=== PATIENT | female | born 1950 | race Hispanic/Latino ===

== ENCOUNTER → 2021-07-08 | Outpatient (CLI) | payer OTHER | END | disposition home or self-care (01) | LOC: RAH 08:41 | PROVIDERS: ATTEND Internal Medicine | DX: K80.20 Calculus of gallbladder without cholecystitis without obstruction (principal) | CPT/HCPCS: 76700 ==

== ENCOUNTER 2021-08-09 07:59 | Day surgery (SDC) | payer OTHER ==
[~2021-08-09] VITALS: Ht 157.5 cm; Wt 60.3 kg
[~2021-08-09 07:59] MED LIST: 0.9%NACL 1000ML 1,000 ML IV ONE
[2021-08-09 08:15] VITALS: BP 198/85
[2021-08-09] MEDS ORDERED: ALEN35TA53 PO (08:28)
[2021-08-09] MEDS ORDERED: VALS160T29 PO (08:32)
[2021-08-09] MEDS ORDERED: ASPI-1197 PO (08:32)
[2021-08-09] MEDS ORDERED: ROSU20TA31 PO (08:32)
[2021-08-09] MEDS ORDERED: PANT40GR PO (08:32)
[2021-08-09] MEDS ORDERED: CHOL100046 PO (08:34)
[2021-08-09] MEDS ORDERED: PROPOFOL 10 MG/ML 20ML VIAL IV ONE (09:32)
[2021-08-09 09:44] VITALS: BP 116/53
[2021-08-09 09:49] VITALS: BP 129/56
[2021-08-09 09:54] VITALS: BP 139/58
[2021-08-09 09:59] VITALS: BP 138/59
[2021-08-09 10:04] VITALS: BP 138/65
== END 2021-08-09 10:11 | disposition home or self-care (01) ==
LOC: DAH 07:59
PROVIDERS: ATTEND Internal Medicine Gastroenterology
DX: R93.2 Abnormal findings on diagnostic imaging of liver and biliary tract (principal); K31.89 Other diseases of stomach and duodenum; K80.20 Calculus of gallbladder without cholecystitis without obstruction; K80.50 Calculus of bile duct without cholangitis or cholecystitis without obstruction; K83.8 Other specified diseases of biliary tract; R93.5 Abnormal findings on diagnostic imaging of other abdominal regions, including retroperitoneum; I10 Essential (primary) hypertension; E78.5 Hyperlipidemia, unspecified; Z79.899 Other long term (current) drug therapy; Z20.822 Contact with and (suspected) exposure to COVID-19
CPT/HCPCS: 43237; 87635; A4215 ×6; A4221 ×2; A4222 ×2; A4223 ×2; A4606 ×2; A4620 ×2; A4657 ×2; A4663 ×2; C9803; J2704; J7030; 43239; 43255; 45380; 45385

== ENCOUNTER 2021-08-10 10:01 | Day surgery (SDC) | payer OTHER ==
[2021-08-10] VITALS (19 sets, daily range): BP systolic 124–197; BP diastolic 67–88
[~2021-08-10] VITALS: Ht 157.5 cm; Wt 60.3 kg
[~2021-08-10 10:01] MED LIST changes: -0.9%NACL 1000ML 1,000 ML IV ONE; +ALEN35TA53 PO; +ASPI-1197 PO; +CHOL100046 PO; +PANT40GR PO; +ROSU20TA31 PO; +VALS160T29 PO
[2021-08-10] MEDS ORDERED: 0.9%NACL 1000ML 1,000 ML IV ONE (10:19)
[2021-08-10] MEDS ORDERED: INDOMETHACIN 50 MG SUPP.RECT RC SCH (11:00)
[2021-08-10] MEDS ORDERED: IOHEXOL-350 50ML VIAL IV ONE (11:57)
[2021-08-10] MEDS ORDERED: ONDANSETRON 4MG INJ ONE (12:08)
[2021-08-10] MEDS ORDERED: SUCCINYLCHOLINE 200MG/10ML SYR ONE (12:08)
[2021-08-10] MEDS ORDERED: MIDAZOLAM HCL 1 MG/ML 2ML VIAL ONE (12:08)
[2021-08-10] MEDS ORDERED: FENTANYL CITRATE PF 50 MCG/1 ML 2ML VIAL ONE (12:08)
[2021-08-10] MEDS ORDERED: PROPOFOL 10 MG/ML 20ML VIAL IV ONE (12:08)
[2021-08-10] MEDS ORDERED: LIDOCAINE HCL 1% 20 ML VIAL ONE (12:09)
[2021-08-10] MEDS ORDERED: GLUCAGON 1MG KIT 1 MG ML ONE (12:33)
[2021-08-10] MEDS ORDERED: ZOSYN 3.375GM+NS 50ML 50 ML ONE (12:55)
== END 2021-08-10 15:30 | disposition home or self-care (01) ==
LOC: DAH 10:01 → ENDO 10:01
PROVIDERS: ATTEND Internal Medicine Gastroenterology
DX: K80.50 Calculus of bile duct without cholangitis or cholecystitis without obstruction (principal); Z20.822 Contact with and (suspected) exposure to COVID-19; E11.9 Type 2 diabetes mellitus without complications; K21.9 Gastro-esophageal reflux disease without esophagitis; I10 Essential (primary) hypertension; E78.5 Hyperlipidemia, unspecified; K83.8 Other specified diseases of biliary tract; Z79.82 Long term (current) use of aspirin; Z79.899 Other long term (current) drug therapy; Z87.891 Personal history of nicotine dependence; Z98.890 Other specified postprocedural states; Z98.49 Cataract extraction status, unspecified eye; Z79.01 Long term (current) use of anticoagulants
CPT/HCPCS: 43264; 43274; 74328; A4215 ×2; A4221; A4222; A4223; A4606; A4657 ×2; A4663; C1769 ×2; J0330; J1610; J2250; J2405; J2543; J2704; J3010; J7030; Q9967; 74330

== ENCOUNTER 2021-09-06 08:51 | Day surgery (SDC) | payer OTHER ==
[2021-09-06] VITALS (16 sets, daily range): BP systolic 124–191; BP diastolic 56–77
[~2021-09-06] VITALS: Ht 157.5 cm; Wt 60.3 kg
[~2021-09-06 08:51] MED LIST changes: +0.9%NACL 1000ML 1,000 ML IV ONE
[2021-09-06] MEDS ORDERED: INDOMETHACIN 50 MG SUPP.RECT RC SCH (10:30)
[2021-09-06] MEDS ORDERED: IOHEXOL-350 50ML VIAL IV ONE (10:43)
[2021-09-06] MEDS ORDERED: SUCCINYLCHOLINE 200MG/10ML SYR ONE (10:48)
[2021-09-06] MEDS ORDERED: PROPOFOL 10 MG/ML 20ML VIAL IV ONE (10:48)
[2021-09-06] MEDS ORDERED: EPHEDRINE SULFATE 50 MG/ML AMPULE ONE (11:16)
[2021-09-06] MEDS ORDERED: GLYCOPYRROLATE 0.2 MG/ML 5 ML VIAL ONE (11:16)
== END 2021-09-06 13:37 | disposition home or self-care (01) ==
LOC: ENDO 08:51 → DAH 08:51 → ENDO 13:37
PROVIDERS: ATTEND Internal Medicine Gastroenterology
DX: Z46.59 Encounter for fitting and adjustment of other gastrointestinal appliance and device (principal); Z20.822 Contact with and (suspected) exposure to COVID-19; K80.70 Calculus of gallbladder and bile duct without cholecystitis without obstruction; I10 Essential (primary) hypertension; E78.5 Hyperlipidemia, unspecified; Z98.49 Cataract extraction status, unspecified eye; Z79.899 Other long term (current) drug therapy; Z98.890 Other specified postprocedural states; Z79.82 Long term (current) use of aspirin
CPT/HCPCS: 43262; 43264; 43275; 74328; 82948; 87635; A4215 ×2; A4221; A4222; A4223; A4606; A4657 ×2; A4663; C1769; C1773; C9803; J0330; J2704; J3490 ×2; J7030; Q9967; 74330